=== PATIENT | female | born 1990 | race Caucasian/White ===

== ENCOUNTER 2022-09-26 18:59 | Emergency (ER) | payer BC, OTHER ==
[~2022-09-26] VITALS: Ht 157.5 cm; Wt 122.5 kg
[2022-09-26 19:15] VITALS: BP 150/95
[2022-09-26 19:31] LABS: APPEARANCE,URINE CLOUDY (CLEAR); BILIRUBIN,URINE NEGATIVE (NEGATIVE); COLOR,URINE YELLOW (YELLOW); GLUCOSE, URINE (UA) 500 mg/dL (NEGATIVE); KETONES,URINE 10 mg/dL (NEGATIVE); LEUKOCYTE ESTERASE ,URINE 75 Leu/uL (NEGATIVE); NITRATE,URINE NEGATIVE (NEGATIVE); OCCULT BLOOD,URINE MODERATE (NEGATIVE); PH,URINE 5.5 (5.0-8.0); PROTEIN,URINE 20 mg/dL (NEGATIVE); UROBILINOGEN,URINE 0.2 mg/dL (0.2-1.0)
[2022-09-26 19:34] LABS: HCG,QUALITATIVE URINE POSITIVE (NEGATIVE)
[2022-09-26 19:39] LABS: BACTERIA,URINE FEW /HPF (None Seen); MUCUS,URINE MANY LPF (None Seen); SQUAMOUS EPITHELIAL CELL,UR MANY /HPF (0-2)
[2022-09-26] MEDS ORDERED: LACTATED RINGERS 1000ML 1,000 ML IV ONE (20:17)
[2022-09-26] MEDS ORDERED: ONDANSETRON 4MG INJ ONE (20:17)
[2022-09-26] MEDS ORDERED: LACTATED RINGERS 1000ML 1,000 ML IV SCH (20:30)
[2022-09-26] MEDS ORDERED: ONDANSETRON 4MG INJ IVP SCH (20:30)
[2022-09-26] MEDS ORDERED: ONDA4TAB10 PO (21:22)
[2022-09-26] MEDS ORDERED: CEPH500B PO (21:22)
== END 2022-09-26 21:36 | disposition home or self-care (01) ==
LOC: EDH 18:59
DX: O20.0 Threatened abortion (principal); O26.891 Other specified pregnancy related conditions, first trimester; O23.41 Unspecified infection of urinary tract in pregnancy, first trimester; N39.0 Urinary tract infection, site not specified; Z3A.01 Less than 8 weeks gestation of pregnancy; Z79.899 Other long term (current) drug therapy; Z98.890 Other specified postprocedural states; Z20.822 Contact with and (suspected) exposure to COVID-19
CPT/HCPCS: 99284; 96374; 87635; 84702; 87088; 87804 ×2; 81001; 81025; 36415; 76817; C9803; J7120; J2405

== ENCOUNTER 2022-11-26 14:50 | Emergency (ER) | payer BC ==
[~2022-11-26] VITALS: Ht 157.5 cm; Wt 116.6 kg
[~2022-11-26 14:50] MED LIST: CEPH500B PO; ONDA4TAB10 PO
[2022-11-26 15:12] VITALS: BP 144/88; PULSE 96; RESP 16; O2SAT 99
[2022-11-26 15:57] LABS: BASOPHILS # (AUTO) 0.03 K/uL (0.00-0.20); BASOPHILS % (AUTO) 0.3 % (0.0-5.0); EOSINOPHILS # (AUTO) 0.07 K/uL (0.00-0.70); EOSINOPHILS % (AUTO) 0.6 % (0.0-8.0); HEMATOCRIT 37.4 % (36-48); IMMATURE GRANULOCYTE ABSOLUTE 0.05 K/uL (0-1); LYMPHOCYTES # (AUTO) 2.1 K/uL (1.0-4.8); LYMPHOCYTES % (AUTO) 18.1 % (21.0-51.0); MEAN CORPUSCULAR HEMOGLOBIN 28.8 pg (27.0-33.0); MEAN CORPUSCULAR HGB CONC 33.4 g/dL (32.0-36.0); MEAN CORPUSCULAR VOLUME 86.2 fL (79-99); MONOCYTES # (AUTO) 0.7 K/uL (0.1-1.0); MONOCYTES % (AUTO) 6.3 % (3.0-13.0); NEUTROPHILS # (AUTO) 8.6 K/uL (1.8-7.7); NEUTROPHILS % (AUTO) 74.3 % (40.0-77.0); PLATELET COUNT (AUTO) 286 K/uL (130-400); RED BLOOD CELL COUNT(AUTO) 4.34 MIL/uL (4.00-5.50); RED CELL DISTRIBUTION WIDTH 12.8 % (11.0-15.5); WHITE BLOOD COUNT (AUTO) 11.5 K/uL (4.8-10.8)
[2022-11-26 16:08] LABS: CREATININE 0.5 mg/dL (0.5-1.5); POTASSIUM 4.1 mmol/L (3.5-5.1)
[2022-11-26 16:36] LABS: ALBUMIN 3.2 g/dL (3.5-5.0); BILIRUBIN,TOTAL 0.3 mg/dL (0.2-1.0); TOTAL PROTEIN, SERUM 7.2 g/dL (6.0-8.3)
[2022-11-26 17:01] LABS: APPEARANCE,URINE CLOUDY (CLEAR); BILIRUBIN,URINE NEGATIVE (NEGATIVE); COLOR,URINE LIGHT-ORANGE (YELLOW); GLUCOSE, URINE (UA) NEGATIVE (NEGATIVE); KETONES,URINE 20 mg/dL (NEGATIVE); LEUKOCYTE ESTERASE ,URINE 25 Leu/uL (NEGATIVE); NITRATE,URINE NEGATIVE (NEGATIVE); OCCULT BLOOD,URINE LARGE (NEGATIVE); PH,URINE 5.5 (5.0-8.0); PROTEIN,URINE 50 mg/dL (NEGATIVE); UROBILINOGEN,URINE 0.2 mg/dL (0.2-1.0)
[2022-11-26 17:02] LABS: ADD UA MICROSCOPIC YES
[2022-11-26] MEDS ORDERED: CEPH500B PO (17:08)
[2022-11-26 17:34] LABS: BACTERIA,URINE MOD /HPF (None Seen); MUCUS,URINE FEW LPF (None Seen); RBC,URINE TNTC /HPF (0-1); SQUAMOUS EPITHELIAL CELL,UR MANY /HPF (0-2); WBC,URINE TNTC /HPF (0-1)
== END 2022-11-26 17:24 | disposition home or self-care (01) ==
LOC: EDH 14:50
DX: O20.9 Hemorrhage in early pregnancy, unspecified (principal); O23.41 Unspecified infection of urinary tract in pregnancy, first trimester; N39.0 Urinary tract infection, site not specified; Z3A.13 13 weeks gestation of pregnancy; Z79.899 Other long term (current) drug therapy; Z98.890 Other specified postprocedural states
CPT/HCPCS: 36415; 76801; 80053; 81001; 84702; 85025; 86900; 86901; 87088

== ENCOUNTER 2022-12-06 22:51 | Emergency (ER) | payer BC ==
[~2022-12-06] VITALS: Ht 157.5 cm; Wt 117.5 kg
[2022-12-06 23:35] LABS: BASOPHILS # (AUTO) 0.02 K/uL (0.00-0.20); BASOPHILS % (AUTO) 0.1 % (0.0-5.0); EOSINOPHILS % (AUTO) 0.7 % (0.0-8.0); HEMATOCRIT 36.3 % (36-48); IMMATURE GRANULOCYTE ABSOLUTE 0.05 K/uL (0-1); LYMPHOCYTES # (AUTO) 2.5 K/uL (1.0-4.8); LYMPHOCYTES % (AUTO) 18.4 % (21.0-51.0); MEAN CORPUSCULAR HEMOGLOBIN 29.1 pg (27.0-33.0); MEAN CORPUSCULAR HGB CONC 33.9 g/dL (32.0-36.0); MONOCYTES # (AUTO) 0.9 K/uL (0.1-1.0); MONOCYTES % (AUTO) 6.5 % (3.0-13.0); NEUTROPHILS # (AUTO) 10.2 K/uL (1.8-7.7); NEUTROPHILS % (AUTO) 73.9 % (40.0-77.0); PLATELET COUNT (AUTO) 316 K/uL (130-400); RED BLOOD CELL COUNT(AUTO) 4.22 MIL/uL (4.00-5.50); RED CELL DISTRIBUTION WIDTH 12.6 % (11.0-15.5); WHITE BLOOD COUNT (AUTO) 13.8 K/uL (4.8-10.8)
[2022-12-06 23:52] LABS: CREATININE 0.5 mg/dL (0.5-1.5); POTASSIUM 3.8 mmol/L (3.5-5.1)
[2022-12-07 00:14] LABS: BILIRUBIN,TOTAL 0.2 mg/dL (0.2-1.0)
[2022-12-07 00:36] VITALS: BP 125/74; PULSE 88; RESP 20; O2SAT 100
[2022-12-07] MEDS ORDERED: SUCCINYLCHOLINE CHLORIDE 20 MG/ML 10 ML VIAL ONE (16:42)
[2022-12-07] MEDS ORDERED: PROPOFOL 10 MG/ML 20ML VIAL IV ONE (16:42)
[2022-12-07] MEDS ORDERED: FENTANYL CITRATE PF 50 MCG/1 ML 2ML VIAL ONE (16:42)
[2022-12-07] MEDS ORDERED: ROCURONIUM 10MG/1ML SYR 10 MG/ML ML ONE (16:42)
[2022-12-07] MEDS ORDERED: MIDAZOLAM HCL 1 MG/ML 2ML VIAL ONE (16:42)
[2022-12-07] MEDS ORDERED: ONDANSETRON 4MG INJ ONE (16:43)
[2022-12-08] MEDS ORDERED: IBUP-2077 PO (10:42)
[2022-12-08] MEDS ORDERED: PREN-226 PO (10:43)
== END 2022-12-07 00:37 | disposition home or self-care (01) ==
LOC: EDH 22:51
DX: O20.0 Threatened abortion (principal); Z3A.14 14 weeks gestation of pregnancy
CPT/HCPCS: 99284; 76801; 80053; 84702; 85025; 86900; 86901; 36415; J3010; J0330; J2250; J2704; J2405; J3490

== ENCOUNTER 2022-12-07 11:21 | Observation (INO) | payer BC ==
[2022-12-06 19:40] VITALS: BP 140/83; PULSE 77; RESP 20
[~2022-12-07] VITALS: Ht 157.5 cm; Wt 116.6 kg
[2022-12-07] MEDS ORDERED: LACTATED RINGERS 1000ML 1,000 ML IV ONE (13:00)
[2022-12-07 13:15] LABS: BASOPHILS # (AUTO) 0.04 K/uL (0.00-0.20); BASOPHILS % (AUTO) 0.3 % (0.0-5.0); EOSINOPHILS # (AUTO) 0.05 K/uL (0.00-0.70); EOSINOPHILS % (AUTO) 0.3 % (0.0-8.0); HEMATOCRIT 37.9 % (36-48); IMMATURE GRANULOCYTE ABSOLUTE 0.07 K/uL (0-1); LYMPHOCYTES # (AUTO) 1.8 K/uL (1.0-4.8); LYMPHOCYTES % (AUTO) 12.2 % (21.0-51.0); MEAN CORPUSCULAR HEMOGLOBIN 28.9 pg (27.0-33.0); MEAN CORPUSCULAR HGB CONC 33.5 g/dL (32.0-36.0); MEAN CORPUSCULAR VOLUME 86.1 fL (79-99); MONOCYTES # (AUTO) 0.7 K/uL (0.1-1.0); MONOCYTES % (AUTO) 4.9 % (3.0-13.0); NEUTROPHILS # (AUTO) 11.8 K/uL (1.8-7.7); NEUTROPHILS % (AUTO) 81.8 % (40.0-77.0); PLATELET COUNT (AUTO) 303 K/uL (130-400); RED CELL DISTRIBUTION WIDTH 12.7 % (11.0-15.5); WHITE BLOOD COUNT (AUTO) 14.5 K/uL (4.8-10.8)
[2022-12-07 13:24] LABS: CREATININE 0.5 mg/dL (0.5-1.5)
[2022-12-07 14:35] VITALS: O2SAT 99
[2022-12-07] MEDS ORDERED: CEFAZOLIN SODIUM 2 GM VIAL ONE (14:36)
[2022-12-07] MEDS ORDERED: OXYTOCIN-LR 30 UNITS/500ML 500 ML IV ONE (14:48)
[2022-12-07] MEDS ORDERED: MEPERIDINE-PF 50 MG/ML SYG ONE (15:09)
[2022-12-07] MEDS ORDERED: PROMETHAZINE HCL 25 MG/ML 1ML AMPULE IM ONE (15:10)
[2022-12-07] MEDS: LACTATED RINGERS 1000ML 1,000 ML IV SCH (19:00)
[2022-12-07 19:40] VITALS: BP 140/83; PULSE 77; RESP 20
[2022-12-07] MEDS ORDERED: ACETAMINOPHEN 500 MG TABLET PO PRN (20:30)
[2022-12-07] MEDS ORDERED: HYDROCODONE/ACETAMINOPHEN 5/325 MG TAB PO PRN (20:30)
[2022-12-07] MEDS ORDERED: DIPHENHYDRAMINE HCL 25 MG CAPSULE PO PRN (20:30)
[2022-12-07] MEDS ORDERED: IBUPROFEN 600 MG TABLET PO PRN (20:30)
[2022-12-07] MEDS ORDERED: ACETAMINOPHEN WITH CODEINE 1 TAB TAB PO PRN (20:30)
[2022-12-07] MEDS: DOCUSATE SODIUM 100 MG CAP PO SCH (21:24)
[2022-12-07] MEDS: CEFAZOLIN SODIUM 2 GM VIAL IVPB SCH (23:15)
[2022-12-07 23:43] VITALS: BP 136/81; PULSE 77; RESP 20
[2022-12-08] MEDS: LACTATED RINGERS 1000ML 1,000 ML IV SCH (03:41)
[2022-12-08 04:30] VITALS: BP 99/76; PULSE 77; RESP 20
[2022-12-08] MEDS: CEFAZOLIN SODIUM 2 GM VIAL IVPB SCH (07:09)
[2022-12-08 07:55] VITALS: BP 142/85; PULSE 77; RESP 20
[2022-12-08] MEDS: DOCUSATE SODIUM 100 MG CAP PO SCH (09:01)
[2022-12-08] MEDS ORDERED: IBUP-2077 PO (10:42)
[2022-12-08] MEDS ORDERED: PREN-226 PO (10:43)
[2022-12-08 11:50] VITALS: BP 129/69; PULSE 84; RESP 18
== END 2022-12-08 13:05 | disposition home or self-care (01) ==
LOC: EDH 11:21 → LDH 11:22 → WSH 19:30
PROVIDERS: ADMIT Obstetrics & Gynecology; ATTEND Obstetrics & Gynecology
DX: O03.4 Incomplete spontaneous abortion without complication (principal); O72.0 Third-stage hemorrhage; Z3A.14 14 weeks gestation of pregnancy; Z79.899 Other long term (current) drug therapy; Z98.890 Other specified postprocedural states
CPT/HCPCS: 59812; 96372; 96365; 96367; 99284; 80048; 85025; 86850; 86900; 86901; 36415; 88300; 88305; 76805; 96366; G0378 ×21; J2550; J2175; J0690 ×3; J7120 ×2

== ENCOUNTER 2023-05-02 05:30 | Emergency (ER) | payer BC ==
[~2023-05-02] VITALS: Ht 157.5 cm; Wt 117.9 kg
[~2023-05-02 05:30] MED LIST changes: -CEPH500B PO; +IBUP-2077 PO; -ONDA4TAB10 PO; +PREN-226 PO
[2023-05-02 06:11] LABS: BASOPHILS # (AUTO) 0.05 K/uL (0.00-0.20); BASOPHILS % (AUTO) 0.6 % (0.0-5.0); EOSINOPHILS # (AUTO) 0.15 K/uL (0.00-0.70); EOSINOPHILS % (AUTO) 1.9 % (0.0-8.0); HEMATOCRIT 39.8 % (36-48); IMMATURE GRANULOCYTE ABSOLUTE 0.06 K/uL (0-1); LYMPHOCYTES # (AUTO) 2.4 K/uL (1.0-4.8); LYMPHOCYTES % (AUTO) 29.5 % (21.0-51.0); MEAN CORPUSCULAR HEMOGLOBIN 28.1 pg (27.0-33.0); MEAN CORPUSCULAR HGB CONC 33.4 g/dL (32.0-36.0); MONOCYTES # (AUTO) 0.6 K/uL (0.1-1.0); MONOCYTES % (AUTO) 7.2 % (3.0-13.0); NEUTROPHILS # (AUTO) 4.9 K/uL (1.8-7.7); NEUTROPHILS % (AUTO) 60.1 % (40.0-77.0); PLATELET COUNT (AUTO) 337 K/uL (130-400); RED BLOOD CELL COUNT(AUTO) 4.74 MIL/uL (4.00-5.50); RED CELL DISTRIBUTION WIDTH 13.2 % (11.0-15.5); WHITE BLOOD COUNT (AUTO) 8.1 K/uL (4.8-10.8)
[2023-05-02 06:13] LABS: APPEARANCE,URINE TURBID (CLEAR); BILIRUBIN,URINE NEGATIVE (NEGATIVE); COLOR,URINE LIGHT-ORANGE (YELLOW); GLUCOSE, URINE (UA) NEGATIVE (NEGATIVE); KETONES,URINE NEGATIVE (NEGATIVE); LEUKOCYTE ESTERASE ,URINE 25 Leu/uL (NEGATIVE); NITRATE,URINE NEGATIVE (NEGATIVE); OCCULT BLOOD,URINE LARGE (NEGATIVE); PH,URINE 5.5 (5.0-8.0); PROTEIN,URINE 30 mg/dL (NEGATIVE); UROBILINOGEN,URINE 0.2 mg/dL (0.2-1.0)
[2023-05-02 06:14] LABS: ADD UA MICROSCOPIC YES
[2023-05-02 06:15] LABS: MUCUS,URINE RARE LPF (None Seen); RBC,URINE TNTC /HPF (0-1); SQUAMOUS EPITHELIAL CELL,UR FEW /HPF (0-2)
[2023-05-02 06:29] LABS: BILIRUBIN,TOTAL 0.1 mg/dL (0.2-1.0); CREATININE 0.7 mg/dL (0.5-1.5); POTASSIUM 3.9 mmol/L (3.5-5.1); TOTAL PROTEIN, SERUM 6.9 g/dL (6.0-8.3)
[2023-05-02] MEDS ORDERED: PHEN-847 PO (06:49)
[2023-05-02] MEDS ORDERED: CEPH500T PO (06:49)
[2023-05-02 06:51] VITALS: BP 134/92; PULSE 70; RESP 16; O2SAT 99
[2023-05-02] MEDS: CEPHALEXIN 500 MG CAPSULE PO ONE (06:51)
[2023-05-02] MEDS: PHENAZOPYRIDINE HCL 200 MG TABLET PO ONE (06:51)
== END 2023-05-02 06:58 | disposition home or self-care (01) ==
LOC: EDH 05:30
DX: N39.0 Urinary tract infection, site not specified (principal); R10.2 Pelvic and perineal pain
CPT/HCPCS: 36415; 76801; 80053; 81001; 83690; 84702; 85025